=== PATIENT | female | born 1985 | race Caucasian/White ===

== ENCOUNTER 2018-04-03 04:49 | Inpatient (IN) | payer BC, OTHER ==
[2018-04-03 05:11] VITALS: BMI 39.1
--- NOTE | 2018-04-03 05:16 | PDOC ---
Attending Attestation - HPI HPI: 04/03/18 05:22 The patient is a 32 year old female, with a significant PMH of endometriosis, lupus and migraines who presents to the emergency department sent in for admission by neurologist Dr. Rich for 1 week of migraines. The patient states her headache is worse on the right side with associated nausea and photophobia. The patient denies chest pain, shortness of breath, and dizziness. Denies fever, chills, vomit, diarrhea and constipation. Denies dysuria, frequency, urgency and hematuria. Allergies: azithromycin, naproxen, [alieve] - Physicial Exam PE: 04/03/18 05:23 GENERAL: +Mild distress. Well-appearing, well-nourished. HEENT: Normocephalic, atraumatic. PERRL, EOM intact. CARDIOVASCULAR: Normal S1, S2. Regular rate and rhythm. PULMONARY: Clear to auscultation bilaterally. ABDOMEN: Soft, non-distended, non-tender. EXTREMITIES: Normal ROM in all four extremities. No gross deformities. SKIN: Warm, dry. No rash NEUROLOGICAL: No focal neurological deficits. <Fidencio Diallo - Last Filed: 04/03/18 06:01> - Resident Resident Name: Walker Spence - ED Attending Attestation I have performed the following: I have examined & evaluated the patient, The case was reviewed & discussed with the resident, I agree w/resident's findings & plan, Exceptions are as noted - Medical Decision Making 04/06/18 19:33 pt was admitted for further evaluation and care <Johan Colon - Last Filed: 04/06/18 19:33> Attestations - Attestations 04/03/18 05:23 Documentation prepared by Fidencio Diallo, acting as medical technologist blood bank for Johan Colon DO. <Fidencio Diallo - Last Filed: 04/03/18 06:01>
[2018-04-03] MEDS ORDERED: METOCLOPRAMIDE HCL INJECTION 10 MG/2 ML VIAL IVPUSH ONE (05:18)
--- NOTE | 2018-04-03 05:39 | PDOC ---
History of Present Illness - General Chief Complaint: Migraine Headache Stated Complaint: MIGRAINE Time Seen by Provider: 04/03/18 05:10 History Source: Patient Exam Limitations: No Limitations - History of Present Illness Initial Comments: 04/03/18 05:34 Patient is a 32F with history of SLE, endometriosis and migraines here today complaining of a migraine headache for the past 7 days. Patient was sent in by Dr Rich for admission for dihydroergotamine treatment for three days for status migrainosis. Patient describes a headache that insidiously onset, currently worse on the right side, with associated nausea and light sensitivity. Denies fevers, chills, vomiting, and neck pain. Denies chest pain and shortness of breath. Past History - Past Medical History Allergies/Adverse Reactions: Allergies Allergy/AdvReac Type Severity Reaction Status Date / Time azithromycin [From Zithromax] Allergy Verified 04/03/18 05:09 naproxen [From Naprosyn] Allergy Verified 04/03/18 05:09 alieve Allergy Uncoded 04/03/18 05:10 - Suicide/Smoking/Psychosocial Hx Smoking History: Never smoked Have you smoked in the past 12 months: No Information on smoking cessation initiated: No Hx Alcohol Use: No Drug/Substance Use Hx: No Review of Systems - Review of Systems Comments:: 04/03/18 05:37 GENERAL/CONSTITUTIONAL: No fever or chills. No weakness. HEAD, EYES, EARS, NOSE AND THROAT: No change in vision. No sore throat. CARDIOVASCULAR: No chest pain or shortness of breath RESPIRATORY: No cough, wheezing, or hemoptysis. GASTROINTESTINAL: No nausea, vomiting, diarrhea or constipation. GENITOURINARY: No dysuria, frequency, or change in urination. MUSCULOSKELETAL: No joint or muscle swelling or pain. No neck or back pain. SKIN: No rash NEUROLOGIC: +headache. No vertigo, loss of consciousness, or change in strength/ sensation. ENDOCRINE: No increased thirst. No abnormal weight change HEMATOLOGIC/LYMPHATIC: No anemia, easy bleeding, or history of blood clots. ALLERGIC/IMMUNOLOGIC: No hives or skin allergy. *Physical Exam - Vital Signs Last Vital Signs Temp Pulse Resp BP Pulse Ox 97.6 F 82 20 136/90 100 04/03/18 05:10 04/03/18 05:10 04/03/18 05:10 04/03/18 05:10 04/03/18 05:10 - Physical Exam Comments: 04/03/18 05:37 GENERAL: Awake, alert, and fully oriented, in no acute distress, covering eyes HEAD: No signs of trauma, normocephalic, atraumatic EYES: PERRLA, EOMI, sclera anicteric, conjunctiva clear ENT: Auricles normal inspection, hearing grossly normal, nares patent, oropharynx clear without exudates. Moist mucosa NECK: Normal ROM, supple, no lymphadenopathy, JVD, or masses LUNGS: No distress, speaks full sentences, clear to auscultation bilaterally HEART: Regular rate and rhythm, normal S1 and S2, no murmurs, rubs or gallops, peripheral pulses normal and equal bilaterally. ABDOMEN: Soft, nontender, normoactive bowel sounds. No guarding, no rebound. No masses EXTREMITIES: Normal inspection, Normal range of motion, no edema. No clubbing or cyanosis. NEUROLOGICAL: Cranial nerves II through XII grossly intact. Normal speech, normal gait, no focal sensorimotor deficits SKIN: Warm, Dry, normal turgor, no rashes or lesions noted. ED Treatment Course - LABORATORY CBC & Chemistry Diagram: 04/03/18 05:45 04/03/18 05:45 Medical Decision Making - Medical Decision Making 04/03/18 05:37 Patient is 32F with history of migraines, SLE, and endometriosis here today complaining of a migraine. Vital signs stable and normal. Will evaluate with cbc , cmp, ekg to clear for DHE treatment. Will give reglan now. Will contact Dr Rich at 6am. 04/03/18 06:30 EKG shows normal sinus rhythm with rate of 69. No st elevations/depressions. No significant t-wave inversions. Normal axis. Normal intervals. Laboratory Tests 04/03/18 05:45 WBC 8.8 Hgb 13.4 Hct 39.9 RDW 14.7 CBC normal. Lab called to cancel result. Second CBC ordered. 04/03/18 07:[address] Ricketts *DC/Admit/Observation/Transfer Diagnosis at time of Disposition: Migraine - Discharge Dispostion Condition at time of disposition: Stable - Referrals Referrals: Arabella He MD [Primary Care Provider] - - Patient Instructions - Post Discharge Activity
[2018-04-03] MEDS ORDERED: HYDROXYCHLOROQUINE SO4 200 MG TABLET (FP) PO SCH (06:00)
[2018-04-03 06:34] LABS: ALBUMIN 3.7 g/dl (3.4-5.0); ANION GAP 10 (8-16); BILIRUBIN,TOTAL 0.2 mg/dL (0.2-1.0); BLOOD UREA NITROGEN 12 mg/dL (7-18); CHLORIDE 104 mmol/L (98-107); CO2 25 mmol/L (21-32); CREATININE 0.7 mg/dL (0.55-1.02); GLUCOSE,RANDOM 93 mg/dL (74-106); SGPT/ALT 28 U/L (12-78); SODIUM 139 mmol/L (136-145); TOT PROT 7.3 g/dl (6.4-8.2)
[2018-04-03 06:35] LABS: ALK PHOS 53 U/L (45-117)
[2018-04-03 06:58] LABS: POTASSIUM 4.3 mmol/L (3.5-5.1); SGOT/AST 22 U/L (15-37)
[2018-04-03 07:59] LABS: BASO % 0.3 % (0-2.0); EOS % 1.7 % (0-4.5); HEMATOCRIT 37.5 % (32.4-45.2); HEMOGLOBIN 12.8 GM/dL (10.7-15.3); LYMPH % 32.6 % (8-40); MCH 30.3 pg (25.7-33.7); MCHC 34.1 g/dl (32.0-36.0); MEAN CELL VOLUME 88.8 fl (80-96); MONO % 6.2 % (3.8-10.2); NEUT % 59.2 % (42.8-82.8); PLATELET COUNT 302 K/MM3 (134-434); RBC 4.22 M/mm3 (3.60-5.2); RDW 14.4 % (11.6-15.6); WHITE BLOOD COUNT 7.2 K/mm3 (4.0-10.0)
[2018-04-03 08:25] LABS: INR 1.11 (0.82-1.09); PROTHROMBIN TIME (PATIENT) 12.5 SEC (9.7-13.0)
--- NOTE | 2018-04-03 08:53 | PDOC ---
*Physical Exam - Vital Signs Last Vital Signs Temp Pulse Resp BP Pulse Ox 97.6 F 82 20 136/90 100 04/03/18 05:10 04/03/18 05:10 04/03/18 05:10 04/03/18 05:10 04/03/18 05:10 ED Treatment Course - LABORATORY CBC & Chemistry Diagram: 04/03/18 07:25 04/03/18 05:45 - ADDITIONAL ORDERS Additional order review: Laboratory Results 04/03/18 04/03/18 05:45 05:45 Sodium 139 Potassium 4.3 Chloride 104 Carbon Dioxide 25 Anion Gap 10 BUN 12 Creatinine 0.7 Creat Clearance w eGFR > 60 Random Glucose 93 Calcium 9.0 Total Bilirubin 0.2 AST 22 ALT 28 Alkaline Phosphatase 53 Total Protein 7.3 Albumin 3.7 Serum , Qual Negative 04/03/18 05:45 RBC Cancelled MCV Cancelled MCHC Cancelled RDW Cancelled MPV Cancelled Neutrophils % Cancelled Lymphocytes % Cancelled Monocytes % Cancelled Eosinophils % Cancelled Basophils % Cancelled - Medications Given in the ED: ED Medications Discontinued Medications Generic Name Dose Route Start Last Admin Trade Name Rai PRN Reason Stop Dose Admin Metoclopramide HCl 10 mg 04/03/18 05:18 04/03/18 05:54 Reglan Injection - IVPUSH 04/03/18 05:19 10 mg ONCE ONE Administration Medical Decision Making - Medical Decision Making 04/03/18 08:06 32 yo female PMH SLE and migraines presents to ED for a 7 day Migraine. Received sign out from Dr. Spence. Patient sent by her Neurologist Dr. Rich for inpatient treatment with dihydroergotamine. Attempting to speak with Dr. Rich for verification and dosage of medication. Vitals stable. Labs normal ED Course: Patient resting comfortably. Will reassess within the next hour and call Dr. Rich (neuro [phone]) for dose of dihydroergotamine. Patient states the headache and nausea persist with no improvement with hydroxychloroquine or reglan. According to Dr. Rich, patients migraine regime is: Reglan 10 mg prior to DHE .5 mg q8h. Also, 25 mg benadryl q8h *DC/Admit/Observation/Transfer Diagnosis at time of Disposition: Migraine Qualifiers: Migraine type: unspecified Status migrainosus presence: with status migrainosus Intractability: intractable Qualified Code(s): G43.911 - Migraine, unspecified, intractable, with status migrainosus - Discharge Dispostion Condition at time of disposition: Stable Decision to Admit order: Yes - Referrals Referrals: Arabella He MD [Primary Care Provider] - Aj Rich DO [Staff Physician] - - Patient Instructions - Post Discharge Activity
--- NOTE | 2018-04-03 09:59 | PN ---
Teaching Attending Note Name of Resident: Razia Pascual ATTENDING PHYSICIAN STATEMENT I saw and evaluated the patient. I reviewed the resident's note and discussed the case with the resident. I agree with the resident's findings and plan as documented. SUBJECTIVE: Patient is a 32F w/ pmhx migraines, SLE, endometriosis admitted for persistent migraine headache for the past 7 days.She follows up with . OBJECTIVE: Vital Signs Temperature 97.6 F 04/03/18 05:10 Pulse Rate 82 04/03/18 05:10 Respiratory Rate 20 04/03/18 05:10 Blood Pressure 136/90 04/03/18 05:10 O2 Sat by Pulse Oximetry (%) 100 04/03/18 05:10 CBCD WBC 7.2 K/mm3 (4.0-10.0) 04/03/18 07:25 RBC 4.22 M/mm3 (3.60-5.2) 04/03/18 07:25 Hgb 12.8 GM/dL (10.7-15.3) 04/03/18 07:25 Hct 37.5 % (32.4-45.2) 04/03/18 07:25 MCV 88.8 fl (80-96) 04/03/18 07:25 MCHC 34.1 g/dl (32.0-36.0) 04/03/18 07:25 RDW 14.4 % (11.6-15.6) 04/03/18 07:25 Plt Count 302 K/MM3 (134-434) 04/03/18 07:25 MPV 8.0 fl (7.5-11.1) 04/03/18 07:25 CMP Sodium 139 mmol/L (136-145) 04/03/18 05:45 Potassium 4.3 mmol/L (3.5-5.1) 04/03/18 05:45 Chloride 104 mmol/L (98-107) 04/03/18 05:45 Carbon Dioxide 25 mmol/L (21-32) 04/03/18 05:45 Anion Gap 10 (8-16) 04/03/18 05:45 BUN 12 mg/dL (7-18) 04/03/18 05:45 Creatinine 0.7 mg/dL (0.55-1.02) 04/03/18 05:45 Creat Clearance w eGFR > 60 (>60) 04/03/18 05:45 Random Glucose 93 mg/dL (74-106) 04/03/18 05:45 Calcium 9.0 mg/dL (8.5-10.1) 04/03/18 05:45 Total Bilirubin 0.2 mg/dL (0.2-1.0) 04/03/18 05:45 AST 22 U/L (15-37) 04/03/18 05:45 ALT 28 U/L (12-78) 04/03/18 05:45 Alkaline Phosphatase 53 U/L (45-117) 04/03/18 05:45 Total Protein 7.3 g/dl (6.4-8.2) 04/03/18 05:45 Albumin 3.7 g/dl (3.4-5.0) 04/03/18 05:45 Current Medications Generic Name Dose Route Start Last Admin Trade Name Freq PRN Reason Stop Dose Admin Hydroxychloroquine Sulfate 400 mg 04/03/18 06:00 04/03/18 09:00 Plaquenil - PO 400 mg ONCE MICHEL Administration Current Medications Generic Name Dose Route Start Last Admin Trade Name Freq PRN Reason Stop Dose Admin Bupropion HCl 150 mg 04/04/18 10:00 Wellbutrin - PO DAILY MICHEL Dihydroergotamine Mesylate 0.5 mg 04/03/18 11:00 04/03/18 12:15 D.H.E. - IVPB 0.5 mg Q8H MICHEL Administration Diphenhydramine HCl 25 mg 04/03/18 10:30 04/03/18 18:25 Benadryl Injection - IVPB 25 mg Q8H MICHEL Administration Folic Acid 1 mg 04/04/18 10:00 Folic Acid - PO DAILY MICHEL Methotrexate 15 mg 04/04/18 10:00 Mexate - PO Sa@1000 MICHEL Methylprednisolone 4 mg 04/04/18 10:00 Medrol - PO DAILY MICHEL Metoclopramide HCl 10 mg 04/03/18 11:29 04/03/18 14:31 Reglan Injection - IVPUSH 10 mg Q6H PRN Administration NAUSEA AND/OR VOMITING Non-Formulary Medication 0.7 mg 04/04/18 10:00 Norethindrone [Norethindrone] PO DAILY MICHEL PE: per resident's note EKG: QTc 441 ASSESSMENT AND PLAN: Patient is a 32F w/ pmhx migraines, SLE, endometriosis who presents in the ED with 7 day hx of migraines admitted for uncontrolled migraine exacerbation. #Acute exacerbation of migraine headache for 7 days , patient follows with as an outpatient.will consult dr. Mayfield treatment protocol as per #SLE; cont home meds #Morbid obesity :diet consult for weight loss and recommendations DVT px: SCDS
[2018-04-03] MEDS ORDERED: METOCLOPRAMIDE HCL INJECTION 10 MG/2 ML VIAL IM ONE (10:20)
--- NOTE | 2018-04-03 11:53 | HP ---
CHIEF COMPLAINT: migraine for past 7 days PCP: HISTORY OF PRESENT ILLNESS: 32F w/ pmhx migraines, SLE, endometriosis admitted for persistent migraine headache for the past 7 days. She is currently being seen by Dr. Rich for the migraines and receives botox injections and steroid as treatment. She admits to the headache first starting on the L side but is now mainly on the R side and radiates from the R frontal region throughout the R side of the head down the back of neck. She associates the migraines with photophobia, and pain behind the R eye. She said she recently saw Dr. Rich this past Friday for treatment of her migraine in which she was given steroid and occipital nerve block. Pain behind her eye temporarily improved, but she admits to persistent R eye pain today. She denies fever/chills, vomiting, chest pain, sob, urinary/bowel symptoms. ER course was notable for: (1) Reglan injection given. (2) ECG: NSR, No ST elevation/depression, Normal axis. (3) PAST MEDICAL HISTORY: migraines since childhood SLE, currently being treated endometriosis PAST SURGICAL HISTORY: breast reduction sx 5 years ago laparoscopic removal of endometrial tissue x2 (1st time: years ago, 2nd time: January 2018) Social History: Smoking: Denies smoking use Alcohol: Denies alcohol use Drugs: Denies rec drug use Family History: Father- HTN, possible hx of seizure d/o (?) Allergies azithromycin [From Zithromax] Allergy (Verified 04/03/18 05:09)- hives naproxen [From Naprosyn] Allergy (Verified 04/03/18 05:09)- itchy throat aleve Allergy (Uncoded 04/03/18 05:10)- itchy throat HOME MEDICATIONS: REVIEW OF SYSTEMS CONSTITUTIONAL: Absent: fever, chills, diaphoresis, generalized weakness, malaise, loss of appetite, weight change, HEENT: +R sided eye pain, +photophobia Absent: rhinorrhea, nasal congestion, throat pain, throat swelling, difficulty swallowing, mouth swelling, ear pain, visual changes CARDIOVASCULAR: Absent: chest pain, syncope, palpitations, irregular heart rate, lightheadedness , peripheral edema RESPIRATORY: Absent: cough, shortness of breath, dyspnea with exertion, orthopnea, wheezing, stridor, hemoptysis GASTROINTESTINAL: +nausea Absent: abdominal pain, abdominal distension, vomiting, diarrhea, constipation, melena, hematochezia GENITOURINARY: Absent: dysuria, frequency, urgency, hesitancy, hematuria, flank pain, genital pain MUSCULOSKELETAL: Absent: myalgia, arthralgia, joint swelling, back pain, neck pain SKIN: Absent: rash, itching, pallor HEMATOLOGIC/IMMUNOLOGIC: Absent: easy bleeding, easy bruising, lymphadenopathy, frequent infections ENDOCRINE: Absent: unexplained weight gain, unexplained weight loss, heat intolerance, cold intolerance NEUROLOGIC: +R sided headache, radiating from front of head to back of neck Absent: focal weakness or paresthesias, dizziness, unsteady gait, seizure, mental status changes, bladder or bowel incontinence PSYCHIATRIC: Absent: anxiety, depression, suicidal or homicidal ideation, hallucinations. PHYSICAL EXAMINATION Vital Signs - 24 hr 04/03/18 04/03/18 05:10 10:15 Temperature 97.6 F 98.0 F Pulse Rate 82 Pulse Rate [ 73 Right Radial] Respiratory 20 18 Rate Blood Pressure 136/90 Blood Pressure 108/69 [Left Arm] O2 Sat by Pulse 100 97 Oximetry (%) GENERAL: AAOx3. NAD. Resting comfortably in dark. HEENT: AT/NC. EOMI. +photophobia. NECK: Normal range of motion, supple without lymphadenopathy, JVD, or masses. LUNGS: CTA B/L. -w/r/r/ noted. HEART: RRR. -m/r/g noted. Normal S1, S2. ABDOMEN: Soft, NT/ND. normoactive BS in all 4 Q's. No abdominal masses, or bruits noted. MUSCULOSKELETAL: Normal range of motion at all joints. No bony deformities or tenderness. 5/5 muscle strength in U/L B/L extremities. UPPER EXTREMITIES: 2+ pulses, warm, well-perfused. No cyanosis. No clubbing. No peripheral edema. LOWER EXTREMITIES: 2+ pulses, warm, well-perfused. No calf tenderness. No peripheral edema. NEUROLOGICAL: Cranial nerves II-XII intact. Normal speech. PSYCHIATRIC: Cooperative. Good eye contact. Appropriate mood and affect. SKIN: Warm, dry, normal turgor, no rashes or lesions noted, normal capillary refill. Laboratory Results - last 24 hr 04/03/18 04/03/18 04/03/18 05:45 05:45 05:45 WBC Cancelled Corrected WBC (auto) Cancelled RBC Cancelled Hgb Cancelled Hct Cancelled MCV Cancelled MCH Cancelled MCHC Cancelled RDW Cancelled Plt Count Cancelled MPV Cancelled Absolute Neuts (auto) Cancelled Absolute Lymphs (auto) Cancelled Absolute Monos (auto) Cancelled Absolute Eos (auto) Cancelled Absolute Basos (auto) Cancelled Add Manual Diff Cancelled Neutrophils % Cancelled Lymphocytes % Cancelled Monocytes % Cancelled Eosinophils % Cancelled Basophils % Cancelled Nucleated RBC % Cancelled Platelet Estimate Cancelled Platelet Comment Cancelled Normal RBC Morphology Cancelled PT with INR INR Sodium 139 Potassium 4.3 Chloride 104 Carbon Dioxide 25 Anion Gap 10 BUN 12 Creatinine 0.7 Creat Clearance w eGFR > 60 Random Glucose 93 Calcium 9.0 Total Bilirubin 0.2 AST 22 ALT 28 Alkaline Phosphatase 53 Total Protein 7.3 Albumin 3.7 Serum , Qual Negative 04/03/18 04/03/18 07:25 07:25 WBC 7.2 Corrected WBC (auto) RBC 4.22 Hgb 12.8 Hct 37.5 MCV 88.8 MCH 30.3 MCHC 34.1 RDW 14.4 Plt Count 302 MPV 8.0 Absolute Neuts (auto) 4.3 Absolute Lymphs (auto) Absolute Monos (auto) Absolute Eos (auto) Absolute Basos (auto) Add Manual Diff Neutrophils % 59.2 Lymphocytes % 32.6 Monocytes % 6.2 Eosinophils % 1.7 Basophils % 0.3 Nucleated RBC % 0 Platelet Estimate Platelet Comment Normal RBC Morphology PT with INR 12.50 INR 1.11 Sodium Potassium Chloride Carbon Dioxide Anion Gap BUN Creatinine Creat Clearance w eGFR Random Glucose Calcium Total Bilirubin AST ALT Alkaline Phosphatase Total Protein Albumin Serum , Qual Consults: Neuro - Dr. Rich ASSESSMENT/PLAN: 32F w/ pmhx migraines, SLE, endometriosis who presents in the ED with 7 day hx of migraines admitted for DHE treatment. #status migrainosis -f/u Dr. Rich consult -start migraine tx: Reglan 10 mg 10 min prior to first DHE treatment, then Benadryl 25 mg q8h + DHE .5 mg q8h together -monitor pt for worsening symptoms #SLE; stable. -needs med rec -cont home meds #high BMI -f/u dietitian consult FEN no IVf needed lytes wnl, recheck BMP in AM regular diet dispo full code d/c to home after DHE tx Visit type - Emergency Visit Emergency Visit: Yes ED Registration Date: 04/03/18 Care time: The patient presented to the Emergency Department on the above date and was hospitalized for further evaluation of their emergent condition. - New Patient This patient is new to me today: Yes Date on this admission: 04/03/18 - Critical Care Critical Care patient: No Hospitalist Screening - Colonoscopy Questionnaire Colonoscopy Questionnaire: Colonoscopy Questionnaire - Patient: 50 - 75 years old and never had a screening colonoscopy: Unknown History of colon or rectal polyps, or CA: Unknown History of IBD, Crohn's disease or UC: Unknown History of abdominal radiation therapy as a child: Unknown - Relative: 1 with colon or rectal CA, or polyps at age 60 or younger: Unknown Colon or rectal CA diagnosed at age 45 or younger: Unknown Multiple relatives with colon or rectal CA: Unknown - Outcome: Screening Result: Negative Screen
--- NOTE | 2018-04-03 12:10 | EKG ---
Test Reason : Blood Pressure : / mmHG Vent. Rate : 069 BPM Atrial Rate : 069 BPM P-R Int : 140 ms QRS Dur : 078 ms QT Int : 412 ms P-R-T Axes : 048 045 046 degrees QTc Int : 441 ms POOR DATA QUALITY, INTERPRETATION MAY BE ADVERSELY AFFECTED NORMAL SINUS RHYTHM WITH SINUS ARRHYTHMIA POSSIBLE LEFT ATRIAL ENLARGEMENT BORDERLINE ECG NO PREVIOUS ECGS AVAILABLE Confirmed by SILVA HUGHES, SIDNEY ([id number]) on 04/03/2018 12:10:36 PM Referred By: Confirmed By:SIDNEY ASCENCIO MD
[2018-04-03] MEDS: DIHYDROERGOTAMINE MESYLATE 1 MG/1 ML AMPULE IVPB SCH ×2 (12:15→20:13)
[2018-04-03] MEDS ORDERED: PT OWN MED DRAWER 7, Y5N ONE (13:59)
[2018-04-03] MEDS: METOCLOPRAMIDE HCL INJECTION 10 MG/2 ML VIAL IVPUSH PRN (14:31)
[2018-04-04] MEDS: DIHYDROERGOTAMINE MESYLATE 1 MG/1 ML AMPULE IVPB SCH ×3 (03:25→18:15)
[2018-04-04 09:21] LABS: HEMATOCRIT 40.2 % (32.4-45.2); MCH 30.9 pg (25.7-33.7); MCHC 34.8 g/dl (32.0-36.0); MEAN CELL VOLUME 88.8 fl (80-96); MEAN PLT VOLUME 8.1 fl (7.5-11.1); PLATELET COUNT 289 K/MM3 (134-434); RBC 4.53 M/mm3 (3.60-5.2); RDW 14.5 % (11.6-15.6); WHITE BLOOD COUNT 9.2 K/mm3 (4.0-10.0)
[2018-04-04 09:23] LABS: INR 1.16 (0.82-1.09); PROTHROMBIN TIME (PATIENT) 13.1 SEC (9.7-13.0)
[2018-04-04 09:26] LABS: ACTIVATED PTT 30.1 SECONDS (25.2-36.5)
[2018-04-04] MEDS: FOLIC ACID 1 MG TABLET (FP) PO SCH (09:46)
[2018-04-04] MEDS: buPROPion HCL 75 MG TABLET PO SCH (09:47)
[2018-04-04] MEDS: methylPREDNISolone 4 MG TABLET PO SCH (09:48)
[2018-04-04 09:51] LABS: ANION GAP 8 (8-16); BLOOD UREA NITROGEN 10 mg/dL (7-18); CHLORIDE 105 mmol/L (98-107); CO2 27 mmol/L (21-32); CREATININE 0.7 mg/dL (0.55-1.02); GLUCOSE,RANDOM 83 mg/dL (74-106); MAGNESIUM 2.2 mg/dL (1.8-2.4); PHOSPHOROUS 4.1 mg/dL (2.5-4.9); POTASSIUM 4.7 mmol/L (3.5-5.1); SODIUM 140 mmol/L (136-145)
--- NOTE | 2018-04-04 09:52 | PN ---
Progress Note (short form) - Note Progress Note: Patient continues to have headache but mild headache. Vital Signs Temperature 98.5 F 04/04/18 06:00 Pulse Rate 76 04/04/18 06:00 Respiratory Rate 18 04/04/18 06:00 Blood Pressure 122/87 04/04/18 06:00 O2 Sat by Pulse Oximetry (%) 98 04/04/18 03:00 GENERAL: AAOx3. NAD. HEENT: AT/NC. EOMI. no photophobia NECK: suppe, no JVD or masses appreciated . LUNGS: CTA B/L. No RRW HEART: RRR. Normal S1, S2. ABDOMEN: Soft, NT/ND. large abdomen EXTREMITIES: 2+ pulses, warm, well-perfused. No peripheral edema. NEUROLOGICAL: Cranial nerves II-XII intact. Normal speech. PSYCHIATRIC: Cooperative. Good eye contact. SKIN: Warm, dry, normal turgor, no rashes or lesions noted. CBCD WBC 9.2 K/mm3 (4.0-10.0) 04/04/18 08:00 RBC 4.53 M/mm3 (3.60-5.2) 04/04/18 08:00 Hgb 14.0 GM/dL (10.7-15.3) 04/04/18 08:00 Hct 40.2 % (32.4-45.2) 04/04/18 08:00 MCV 88.8 fl (80-96) 04/04/18 08:00 MCHC 34.8 g/dl (32.0-36.0) 04/04/18 08:00 RDW 14.5 % (11.6-15.6) 04/04/18 08:00 Plt Count 289 K/MM3 (134-434) 04/04/18 08:00 MPV 8.1 fl (7.5-11.1) 04/04/18 08:00 CMP Sodium 139 mmol/L (136-145) 04/03/18 05:45 Potassium 4.3 mmol/L (3.5-5.1) 04/03/18 05:45 Chloride 104 mmol/L (98-107) 04/03/18 05:45 Carbon Dioxide 25 mmol/L (21-32) 04/03/18 05:45 Anion Gap 10 (8-16) 04/03/18 05:45 BUN 12 mg/dL (7-18) 04/03/18 05:45 Creatinine 0.7 mg/dL (0.55-1.02) 04/03/18 05:45 Creat Clearance w eGFR > 60 (>60) 04/03/18 05:45 Random Glucose 93 mg/dL (74-106) 04/03/18 05:45 Calcium 9.0 mg/dL (8.5-10.1) 04/03/18 05:45 Total Bilirubin 0.2 mg/dL (0.2-1.0) 04/03/18 05:45 AST 22 U/L (15-37) 04/03/18 05:45 ALT 28 U/L (12-78) 04/03/18 05:45 Alkaline Phosphatase 53 U/L (45-117) 04/03/18 05:45 Total Protein 7.3 g/dl (6.4-8.2) 04/03/18 05:45 Albumin 3.7 g/dl (3.4-5.0) 04/03/18 05:45 Current Medications Generic Name Dose Route Start Last Admin Trade Name Freq PRN Reason Stop Dose Admin Bupropion HCl 150 mg 04/04/18 10:00 04/04/18 09:47 Wellbutrin - PO 150 mg DAILY MICHEL Administration Dihydroergotamine Mesylate 0.5 mg 04/03/18 11:00 04/04/18 03:25 D.H.E. - IVPB 0.5 mg Q8H MICHEL Administration Diphenhydramine HCl 25 mg 04/03/18 10:30 04/04/18 01:50 Benadryl Injection - IVPB 25 mg Q8H MICHEL Administration Folic Acid 1 mg 04/04/18 10:00 04/04/18 09:46 Folic Acid - PO 1 mg DAILY MICHEL Administration Methotrexate 15 mg 04/04/18 10:00 Mexate - PO Sa@1000 MICHEL Methylprednisolone 4 mg 04/04/18 10:00 04/04/18 09:48 Medrol - PO 4 mg DAILY MICHEL Administration Metoclopramide HCl 10 mg 04/03/18 11:29 04/03/18 14:31 Reglan Injection - IVPUSH 10 mg Q6H PRN Administration NAUSEA AND/OR VOMITING Home Medications Medication Instructions Recorded Bupropion HCl [Wellbutrin -] 150 mg PO DAILY 04/03/18 Folic Acid 1 mg PO DAILY 04/03/18 Methotrexate Sodium [Methotrexate] 2.5 mg PO WEEKLY 04/03/18 Methylprednisolone [Medrol -] 4 mg PO DAILY 04/03/18 Norethindrone 0.7 mg PO DAILY 04/03/18 EKG: QTc 441 ASSESSMENT AND PLAN: Patient is a 32F w/ pmhx migraines, SLE, endometriosis who presents in the ED with 7 day hx of migraines admitted for uncontrolled migraine exacerbation #Acute exacerbation of migraine headache for 7 days. On DHE protocol as per dr. Mayfield. further treatment as per #SLE; cont home meds #Morbid obesity : diet consult for weight loss and recommendations DVT px: SCDS Visit type - Emergency Visit Emergency Visit: Yes ED Registration Date: 04/03/18 Care time: The patient presented to the Emergency Department on the above date and was hospitalized for further evaluation of their emergent condition. - New Patient This patient is new to me today: No - Critical Care Critical Care patient: No - Discharge Referral Referred to [facility] No
[2018-04-04] MEDS: METOCLOPRAMIDE HCL INJECTION 10 MG/2 ML VIAL IVPUSH PRN (09:57)
[2018-04-04] MEDS ORDERED: METHOTREXATE 2.5 MG TABLET PO SCH (10:00)
[2018-04-04] MEDS ORDERED: NORETHINDRONE PO SCH (10:00)
--- NOTE | 2018-04-04 10:44 | CON.NEURO ---
Consult - History of Present Illness History of Present Illness: 32F w/ pmhx migraines, SLE, endometriosis admitted for persistent migraine headache for the past 7 days.I see her as an outpt for intractable migraines and she receives botox injections and po steroid as treatment. She admits to the headache first starting on the L side but is now mainly on the R side and radiates from the R frontal region throughout the R side of the head down the back of neck. She associates the migraines with photophobia, and pain behind the R eye. no help with medrol, nerve blocks-admitted for DHE protocol . She denies fever/chills, vomiting, chest pain, sob, urinary/bowel symptoms. started DHE yesterday--AH better today though still linger ; minimal chest pressure witH DHE. - History Source History Provided By: Patient, Medical Record - Past Medical History ...LMP: 03/10/18 ...: No - Alcohol/Substance Use Hx Alcohol Use: No - Smoking History Smoking history: Never smoked Have you smoked in the past 12 months: No Home Medications - Allergies Allergies/Adverse Reactions: Allergies Allergy/AdvReac Type Severity Reaction Status Date / Time azithromycin [From Zithromax] Allergy Verified 04/03/18 05:09 naproxen [From Naprosyn] Allergy Verified 04/03/18 05:09 alieve Allergy Uncoded 04/03/18 05:10 - Home Medications Home Medications: Ambulatory Orders Bupropion HCl [Wellbutrin -] 150 mg PO DAILY 04/03/18 Folic Acid 1 mg PO DAILY 04/03/18 Methotrexate Sodium [Methotrexate] 2.5 mg PO WEEKLY 04/03/18 Methylprednisolone [Medrol -] 4 mg PO DAILY 04/03/18 Norethindrone 0.7 mg PO DAILY 04/03/18 Physical Exam-Neuro Vital Signs: Vital Signs Temperature 98.5 F 04/04/18 06:00 Pulse Rate 76 04/04/18 06:00 Respiratory Rate 18 04/04/18 06:00 Blood Pressure 122/87 04/04/18 06:00 O2 Sat by Pulse Oximetry (%) 98 04/04/18 03:00 Constitutional: Yes: Well Nourished Labs: CBC, BMP 04/04/18 08:00 04/04/18 08:00 INR, PTT INR 1.16 (0.82-1.09) H 04/04/18 08:00 - Neuro Exam Level Of Consciousness: Yes: Alert, Oriented to Person Eyes: Yes: PERRLA Speech: WNL Cranial Nerves II-XII Intact: Yes Coordination: Normal: Finger to Nose Motor Strength: 5/5: Right Leg, Left Leg, Right Arm, Left Arm Gait: Normal Problem List - Problems (1) Migraine with status migrainosus Code(s): G43.901 - MIGRAINE, UNSP, NOT INTRACTABLE, WITH STATUS MIGRAINOSUS Assessment/Plan MIigraine with status migrainosus CONT DHE 0.5 TID , premedicate with REGLAN 30min prior will get EKG now , if any changes --may have to hold DHE ( though this not uncommon) doing better plan to continue till tomorrow evening and if Ok then DC tomorrow night. please call any questions DR LIRA
--- NOTE | 2018-04-04 11:24 | EKG ---
Test Reason : Blood Pressure : / mmHG Vent. Rate : 078 BPM Atrial Rate : 078 BPM P-R Int : 138 ms QRS Dur : 084 ms QT Int : 398 ms P-R-T Axes : 047 059 036 degrees QTc Int : 453 ms NORMAL SINUS RHYTHM NORMAL ECG WHEN COMPARED WITH ECG OF 03-APR-2018 06:23, NO SIGNIFICANT CHANGE WAS FOUND Confirmed by SIDNEY ASCENCIO MD ([id number]) on 04/04/2018 11:24:19 AM Referred By: Thad RAMOS Confirmed By:SIDNEY ASCENCIO MD
[2018-04-04] MEDS: METOCLOPRAMIDE HCL INJECTION 10 MG/2 ML VIAL IVPUSH SCH (17:40)
[2018-04-04] MEDS ORDERED: METOCLOPRAMIDE HCL INJECTION 10 MG/2 ML VIAL IVPUSH SCH (18:00)
[2018-04-04] MEDS ORDERED: ACETAMINOPHEN 325 MG TABLET (FP) PO ONE (22:38)
[2018-04-05] MEDS: METOCLOPRAMIDE HCL INJECTION 10 MG/2 ML VIAL IVPUSH SCH ×3 (01:35→18:16)
[2018-04-05] MEDS: DIHYDROERGOTAMINE MESYLATE 1 MG/1 ML AMPULE IVPB SCH ×3 (02:20→18:49)
--- NOTE | 2018-04-05 07:59 | PN ---
Physical Exam: SUBJECTIVE: Patient seen and examined. Pt admits to persistent R sided headache , but improved since yesterday. Denies fever/chills, n/v. Tolerating PO intake. OBJECTIVE: Vital Signs Period Temp Pulse Resp BP Sys/Elena Pulse Ox Last 24 Hr 98.1 F-98.5 F 67-82 18-20 118-126/75-92 100-100 GENERAL: AAOx3. NAD. Resting comfortably in dark. HEENT: AT/NC. EOMI. +photophobia. NECK: Normal range of motion, supple without lymphadenopathy, JVD, or masses. LUNGS: CTA B/L. -w/r/r/ noted. HEART: RRR. -m/r/g noted. Normal S1, S2. ABDOMEN: Soft, NT/ND. normoactive BS in all 4 Q's. No abdominal masses, or bruits noted. MUSCULOSKELETAL: Normal range of motion at all joints. No bony deformities or tenderness. 5/5 muscle strength in U/L B/L extremities. UPPER EXTREMITIES: 2+ pulses, warm, well-perfused. No cyanosis. No clubbing. No peripheral edema. LOWER EXTREMITIES: 2+ pulses, warm, well-perfused. No calf tenderness. No peripheral edema. NEUROLOGICAL: Cranial nerves II-XII intact. Normal speech. PSYCHIATRIC: Cooperative. Good eye contact. Appropriate mood and affect. SKIN: Warm, dry, normal turgor, no rashes or lesions noted, normal capillary refill. Laboratory Results - last 24 hr 04/04/18 04/04/18 04/04/18 08:00 08:00 08:00 WBC 9.2 RBC 4.53 Hgb 14.0 Hct 40.2 MCV 88.8 MCH 30.9 MCHC 34.8 RDW 14.5 Plt Count 289 MPV 8.1 PT with INR 13.10 H INR 1.16 H PTT (Actin FS) 30.1 Sodium 140 Potassium 4.7 Chloride 105 Carbon Dioxide 27 Anion Gap 8 BUN 10 Creatinine 0.7 Creat Clearance w eGFR > 60 Random Glucose 83 Calcium 9.0 Phosphorus 4.1 Magnesium 2.2 Active Medications Generic Name Dose Route Start Last Admin Trade Name Freq PRN Reason Stop Dose Admin Bupropion HCl 150 mg 04/04/18 10:00 04/04/18 09:47 Wellbutrin - PO 150 mg DAILY MICHEL Administration Dihydroergotamine Mesylate 0.5 mg 04/04/18 18:30 04/05/18 02:20 D.H.E. - IVPB 0.5 mg Q8H-IV MICHEL Administration Diphenhydramine HCl 25 mg 04/04/18 18:30 04/05/18 02:22 Benadryl Injection - IVPUSH 25 mg Q8H MICHEL Administration Folic Acid 1 mg 04/04/18 10:00 04/04/18 09:46 Folic Acid - PO 1 mg DAILY MICHEL Administration Methotrexate 15 mg 04/04/18 10:00 04/04/18 10:15 Mexate - PO 15 mg Sa@1000 MICHEL Administration Methylprednisolone 4 mg 04/04/18 10:00 04/04/18 09:48 Medrol - PO 4 mg DAILY MICHEL Administration Metoclopramide HCl 10 mg 04/04/18 18:00 04/05/18 01:35 Reglan Injection - IVPUSH 10 mg Q8H-IV MICHEL Administration Consults: Neuro - Dr. Rich ASSESSMENT/PLAN: 32F w/ pmhx migraines, SLE, endometriosis who presents in the ED with 7 day hx of migraines admitted for DHE treatment. #status migrainosis; improved since admission, but persistent R sided CASTAÑEDA. -cont migraine tx per Dr. Rich: Reglan 10 mg 30 min prior to first DHE treatment, then Benadryl 25 mg q8h + DHE .75 mg q8h together; Add Depakon 500 mg IV q8H -monitor pt for worsening symptoms #SLE; stable. -cont home meds #high BMI -f/u dietitian consult FEN no IVf needed lytes wnl regular diet dispo full code d/c to home after DHE tx Visit type - Emergency Visit Emergency Visit: Yes ED Registration Date: 04/03/18 Care time: The patient presented to the Emergency Department on the above date and was hospitalized for further evaluation of their emergent condition. - New Patient This patient is new to me today: No - Critical Care Critical Care patient: No
[2018-04-05] MEDS: buPROPion HCL 75 MG TABLET PO SCH (09:36)
[2018-04-05] MEDS: FOLIC ACID 1 MG TABLET (FP) PO SCH (09:37)
[2018-04-05] MEDS: methylPREDNISolone 4 MG TABLET PO SCH (09:37)
--- NOTE | 2018-04-05 11:50 | PN ---
Progress Note, Physician History of Present Illness: CASTAEÑDA better but linger no more chest pain , EKG NL - Current Medication List Current Medications: Active Medications Bupropion HCl (Wellbutrin -) 150 mg PO DAILY [facility] Last Admin: 04/05/18 09:36 Dose: 150 mg Dihydroergotamine Mesylate (D.H.E. -) 0.5 mg IVPB Q8H-IV [facility] Last Admin: 04/05/18 10:33 Dose: 0.5 mg Diphenhydramine HCl (Benadryl Injection -) 25 mg IVPUSH Q8H [facility] Last Admin: 04/05/18 10:27 Dose: 25 mg Folic Acid (Folic Acid -) 1 mg PO DAILY [facility] Last Admin: 04/05/18 09:37 Dose: 1 mg Methotrexate (Mexate -) 15 mg PO Sa@1000 [facility] Last Admin: 04/04/18 10:15 Dose: 15 mg Methylprednisolone (Medrol -) 4 mg PO DAILY [facility] Last Admin: 04/05/18 09:37 Dose: 4 mg Metoclopramide HCl (Reglan Injection -) 10 mg IVPUSH Q8H-IV [facility] Last Admin: 04/05/18 09:54 Dose: 10 mg - Objective Vital Signs: Vital Signs Temperature 97.9 F 04/05/18 10:00 Pulse Rate 78 04/05/18 10:00 Respiratory Rate 18 04/05/18 10:00 Blood Pressure 127/89 04/05/18 10:00 O2 Sat by Pulse Oximetry (%) 100 04/04/18 21:00 Labs: CBC, BMP 04/04/18 08:00 04/04/18 08:00 INR, PTT INR 1.16 (0.82-1.09) H 04/04/18 08:00 Problem List - Problems (1) Migraine with status migrainosus Code(s): G43.901 - MIGRAINE, UNSP, NOT INTRACTABLE, WITH STATUS MIGRAINOSUS Assessment/Plan MIigraine with status migrainosus CONT DHE 0.5 TID , premedicate with REGLAN 30min prior will get EKG now , if any changes --may have to hold DHE ( though this not uncommon) doing better plan to continue till tomorrow evening and if Ok then DC tomorrow night. please call any questions DR LIRA
--- NOTE | 2018-04-05 11:51 | PN ---
Progress Note (short form) - Note Progress Note: 32F w/ pmhx migraines, SLE, endometriosis admitted for persistent migraine headache for the past 7 days.I see her as an outpt for intractable migraines and she receives botox injections and po steroid as treatment. She admits to the headache first starting on the L side but is now mainly on the R side and radiates from the R frontal region throughout the R side of the head down the back of neck. She associates the migraines with photophobia, and pain behind the R eye. no help with medrol, nerve blocks-admitted for DHE protocol . She denies fever/chills, vomiting, chest pain, sob, urinary/bowel symptoms. FU : CASTAÑEDA better but linger no more chest pain, EKG NL - History Source History Provided By: Patient, Medical Record - Past Medical History ...LMP: 03/10/18 ...: No - Alcohol/Substance Use Hx Alcohol Use: No - Smoking History Smoking history: Never smoked Have you smoked in the past 12 months: No Home Medications - Allergies Allergies/Adverse Reactions: Allergies Allergy/AdvReac Type Severity Reaction Status Date / Time azithromycin [From Zithromax] Allergy Verified 04/03/18 05:09 naproxen [From Naprosyn] Allergy Verified 04/03/18 05:09 alieve Allergy Uncoded 04/03/18 05:10 - Home Medications Home Medications: Ambulatory Orders Bupropion HCl [Wellbutrin -] 150 mg PO DAILY 04/03/18 Folic Acid 1 mg PO DAILY 04/03/18 Methotrexate Sodium [Methotrexate] 2.5 mg PO WEEKLY 04/03/18 Methylprednisolone [Medrol -] 4 mg PO DAILY 04/03/18 Norethindrone 0.7 mg PO DAILY 04/03/18 Physical Exam-Neuro Vital Signs: Vital Signs Temperature 97.9 F 04/05/18 10:00 Pulse Rate 78 04/05/18 10:00 Respiratory Rate 18 04/05/18 10:00 Blood Pressure 127/89 04/05/18 10:00 O2 Sat by Pulse Oximetry (%) 100 04/04/18 21:00 Constitutional: Yes: Well Nourished Labs: CBC, BMP 04/04/18 08:00 04/04/18 08:00 INR, PTT INR 1.16 (0.82-1.09) H 04/04/18 08:00 - Neuro Exam Level Of Consciousness: Yes: Alert, Oriented to Person Eyes: Yes: PERRLA Speech: WNL Cranial Nerves II-XII Intact: Yes Coordination: Normal: Finger to Nose Motor Strength: 5/5: Right Leg, Left Leg, Right Arm, Left Arm Gait: Normal Problem List - Problems (1) Migraine with status migrainosus Code(s): G43.901 - MIGRAINE, UNSP, NOT INTRACTABLE, WITH STATUS MIGRAINOSUS Assessment/Plan MIigraine with status migrainosus INC DHE 0.75 TID , premedicate with REGLAN 30min prior add on DEPAKON 500IV q8 DR LIRA Problem List - Problems (1) Migraine with status migrainosus Code(s): G43.901 - MIGRAINE, UNSP, NOT INTRACTABLE, WITH STATUS MIGRAINOSUS
[2018-04-05] MEDS ORDERED: DIHYDROERGOTAMINE MESYLATE 1 MG/1 ML AMPULE IVPB SCH (11:52)
[2018-04-05] MEDS: VALPROATE SODIUM 500 MG/5 ML VIAL IVPB SCH (17:04)
--- NOTE | 2018-04-05 18:02 | PN ---
Teaching Attending Note Name of Resident: Razia Pascual ATTENDING PHYSICIAN STATEMENT I saw and evaluated the patient. I reviewed the resident's note and discussed the case with the resident. I agree with the resident's findings and plan as documented. SUBJECTIVE: Patient is feeling better but continues to have headache less than before. OBJECTIVE: Vital Signs Temperature 97.7 F 04/05/18 14:02 Pulse Rate 72 04/05/18 14:02 Respiratory Rate 20 04/05/18 14:02 Blood Pressure 128/83 04/05/18 14:02 O2 Sat by Pulse Oximetry (%) 99 04/05/18 09:00 CBCD WBC 9.2 K/mm3 (4.0-10.0) 04/04/18 08:00 RBC 4.53 M/mm3 (3.60-5.2) 04/04/18 08:00 Hgb 14.0 GM/dL (10.7-15.3) 04/04/18 08:00 Hct 40.2 % (32.4-45.2) 04/04/18 08:00 MCV 88.8 fl (80-96) 04/04/18 08:00 MCHC 34.8 g/dl (32.0-36.0) 04/04/18 08:00 RDW 14.5 % (11.6-15.6) 04/04/18 08:00 Plt Count 289 K/MM3 (134-434) 04/04/18 08:00 MPV 8.1 fl (7.5-11.1) 04/04/18 08:00 CMP Sodium 140 mmol/L (136-145) 04/04/18 08:00 Potassium 4.7 mmol/L (3.5-5.1) 04/04/18 08:00 Chloride 105 mmol/L (98-107) 04/04/18 08:00 Carbon Dioxide 27 mmol/L (21-32) 04/04/18 08:00 Anion Gap 8 (8-16) 04/04/18 08:00 BUN 10 mg/dL (7-18) 04/04/18 08:00 Creatinine 0.7 mg/dL (0.55-1.02) 04/04/18 08:00 Creat Clearance w eGFR > 60 (>60) 04/04/18 08:00 Random Glucose 83 mg/dL (74-106) 04/04/18 08:00 Calcium 9.0 mg/dL (8.5-10.1) 04/04/18 08:00 Total Bilirubin 0.2 mg/dL (0.2-1.0) 04/03/18 05:45 AST 22 U/L (15-37) 04/03/18 05:45 ALT 28 U/L (12-78) 04/03/18 05:45 Alkaline Phosphatase 53 U/L (45-117) 04/03/18 05:45 Total Protein 7.3 g/dl (6.4-8.2) 04/03/18 05:45 Albumin 3.7 g/dl (3.4-5.0) 04/03/18 05:45 Current Medications Generic Name Dose Route Start Last Admin Trade Name Freq PRN Reason Stop Dose Admin Bupropion HCl 150 mg 04/04/18 10:00 04/05/18 09:36 Wellbutrin - PO 150 mg DAILY MICHEL Administration Dihydroergotamine Mesylate 0.75 mg 04/05/18 11:54 D.H.E. - IVPB Q8H-IV MICHEL Diphenhydramine HCl 25 mg 04/04/18 18:30 04/05/18 10:27 Benadryl Injection - IVPUSH 25 mg Q8H MICHEL Administration Folic Acid 1 mg 04/04/18 10:00 04/05/18 09:37 Folic Acid - PO 1 mg DAILY MICHEL Administration Methotrexate 15 mg 04/04/18 10:00 04/04/18 10:15 Mexate - PO 15 mg Sa@1000 MICHEL Administration Methylprednisolone 4 mg 04/04/18 10:00 04/05/18 09:37 Medrol - PO 4 mg DAILY MICHEL Administration Metoclopramide HCl 10 mg 04/04/18 18:00 04/05/18 09:54 Reglan Injection - IVPUSH 10 mg Q8H-IV MICHEL Administration Valproate Sodium 500 mg 04/05/18 14:00 04/05/18 17:04 Depacon Injection - IVPB 500 mg TID MICHEL Administration Home Medications Medication Instructions Recorded Bupropion HCl [Wellbutrin -] 150 mg PO DAILY 04/03/18 Methotrexate Sodium [Methotrexate] 2.5 mg PO WEEKLY 04/03/18 RX: Folic Acid 1 mg PO DAILY 04/03/18 RX: Methylprednisolone [Medrol -] 4 mg PO DAILY 04/03/18 RX: Norethindrone 0.7 mg PO DAILY 04/03/18 EKG: QTc 441 ASSESSMENT AND PLAN: Patient is a 32F w/ pmhx migraines, SLE, endometriosis who presents in the ED with 7 day hx of migraines admitted for uncontrolled migraine exacerbation #Acute exacerbation of migraine headache continues but improving . as per , added Depacon and increasded the dose of DHE to 0.75mg, will revaluate the patiernt n am #SLE; cont home meds #Morbid obesity : diet consult for weight loss and recommendations DVT px: SCDS
[2018-04-05] MEDS ORDERED: PT OWN MED DRAWER 7, Y5N ONE (21:31)
[2018-04-06] MEDS: VALPROATE SODIUM 500 MG/5 ML VIAL IVPB SCH ×2 (00:23→08:51)
[2018-04-06] MEDS: METOCLOPRAMIDE HCL INJECTION 10 MG/2 ML VIAL IVPUSH SCH ×2 (01:54→09:09)
[2018-04-06] MEDS: DIHYDROERGOTAMINE MESYLATE 1 MG/1 ML AMPULE IVPB SCH (02:28)
[2018-04-06] MEDS ORDERED: PT OWN MED DRAWER 7, Y5N ONE ×2 (08:45→09:06)
[2018-04-06] MEDS: buPROPion HCL 75 MG TABLET PO SCH (09:07)
[2018-04-06] MEDS: methylPREDNISolone 4 MG TABLET PO SCH (09:08)
[2018-04-06] MEDS: FOLIC ACID 1 MG TABLET (FP) PO SCH (09:08)
[2018-04-06 12:40] VITALS: BP 125/74; PULSE 75; TEMP 98.5
--- NOTE | 2018-04-06 14:26 | DS ---
Physical Exam: SUBJECTIVE: Patient seen and examined. No acute complaints overnight. OBJECTIVE: Vital Signs Period Temp Pulse Resp BP Sys/Elena Pulse Ox Last 24 Hr 98.0 F-98.5 F 68-84 18-20 113-125/67-78 98-98 PHYSICAL EXAM GENERAL: AAOx3. NAD. Resting comfortably in dark. HEENT: AT/NC. EOMI. +photophobia. NECK: Normal range of motion, supple without lymphadenopathy, JVD, or masses. LUNGS: CTA B/L. -w/r/r/ noted. HEART: RRR. -m/r/g noted. Normal S1, S2. ABDOMEN: Soft, NT/ND. normoactive BS in all 4 Q's. No abdominal masses, or bruits noted. MUSCULOSKELETAL: Normal range of motion at all joints. No bony deformities or tenderness. 5/5 muscle strength in U/L B/L extremities. UPPER EXTREMITIES: 2+ pulses, warm, well-perfused. No cyanosis. No clubbing. No peripheral edema. LOWER EXTREMITIES: 2+ pulses, warm, well-perfused. No calf tenderness. No peripheral edema. NEUROLOGICAL: Cranial nerves II-XII intact. Normal speech. PSYCHIATRIC: Cooperative. Good eye contact. Appropriate mood and affect. SKIN: Warm, dry, normal turgor, no rashes or lesions noted, normal capillary refill. LABS HOSPITAL COURSE: 32F w/ pmhx of migraines, SLE, and endometriosis was sent to the ED by Dr. Rich for persistent migraines for the past 7 days associated with photophobia , pain behind her R eye, and R sided pain radiating from the frontal region to the back of her neck. Upon admission, she was given Zofran for nausea and was placed on a DHE treatment per Dr. Rich's recommendation for 3 days. She was given Zofran, dihydroergotamine, and Benadryl. During her hospital stay, pt's symptoms improved with resolution of her migraine. She was discharged home with instructions to make a follow up appointment with Dr. Rich today. Date of Admission:04/03/18 Date of Discharge: 04/06/18 Minutes to complete discharge: 35 Discharge Summary Reason For Visit: MIGRAINE HEADACHE Condition: Good - Instructions Diet, Activity, Other Instructions: You were sent to the ED by your neurologist, Dr. Rich and admitted for intractable migraines. In the ED, you were given a migraine treatment for 3 days in the hospital by Dr. Rich. Your symptoms improved since admission and you were discharged home. MEDICAL RECOMMENDATIONS Please continue to take your home meds. CONSULT RECOMMENDATIONS Please follow up with your primary care physician, Dr. He in [address] Rich today for a follow up appointment. If you continue to experience persistent migraines, vision changes, worsening pain behind your eyes or nausea/vomiting, please go to your nearest emergency room immediately. Referrals: Aj Rich DO [Staff Physician] - 1 Week Arabella He MD [Primary Care Provider] - 1 Week Disposition: HOME - Home Medications Comprehensive Discharge Medication List: Ambulatory Orders Bupropion HCl [Wellbutrin -] 150 mg PO DAILY 04/03/18 Folic Acid 1 mg PO DAILY 04/03/18 Methotrexate Sodium [Methotrexate] 2.5 mg PO WEEKLY 04/03/18 Methylprednisolone [Medrol -] 4 mg PO DAILY 04/03/18 Norethindrone 0.7 mg PO DAILY 04/03/18 This patient is new to me today: No Emergency Visit: Yes ED Registration Date: 04/03/18 Care time: The patient presented to the Emergency Department on the above date and was hospitalized for further evaluation of their emergent condition. Critical Care patient: No - Discharge Referral Referred to [facility] No
--- NOTE | 2018-04-06 18:01 | PN ---
Teaching Attending Note Name of Resident: Razia Pascual ATTENDING PHYSICIAN STATEMENT I saw and evaluated the patient. I reviewed the resident's note and discussed the case with the resident. I agree with the resident's findings and plan as documented. SUBJECTIVE: Patient is comfortable no further headache. OBJECTIVE: Vital Signs Temperature 98.5 F 04/06/18 08:15 Pulse Rate 75 04/06/18 08:15 Respiratory Rate 20 04/06/18 08:15 Blood Pressure 125/74 04/06/18 08:15 O2 Sat by Pulse Oximetry (%) 98 04/06/18 09:00 CBCD WBC 9.2 K/mm3 (4.0-10.0) 04/04/18 08:00 RBC 4.53 M/mm3 (3.60-5.2) 04/04/18 08:00 Hgb 14.0 GM/dL (10.7-15.3) 04/04/18 08:00 Hct 40.2 % (32.4-45.2) 04/04/18 08:00 MCV 88.8 fl (80-96) 04/04/18 08:00 MCHC 34.8 g/dl (32.0-36.0) 04/04/18 08:00 RDW 14.5 % (11.6-15.6) 04/04/18 08:00 Plt Count 289 K/MM3 (134-434) 04/04/18 08:00 MPV 8.1 fl (7.5-11.1) 04/04/18 08:00 CMP Sodium 140 mmol/L (136-145) 04/04/18 08:00 Potassium 4.7 mmol/L (3.5-5.1) 04/04/18 08:00 Chloride 105 mmol/L (98-107) 04/04/18 08:00 Carbon Dioxide 27 mmol/L (21-32) 04/04/18 08:00 Anion Gap 8 (8-16) 04/04/18 08:00 BUN 10 mg/dL (7-18) 04/04/18 08:00 Creatinine 0.7 mg/dL (0.55-1.02) 04/04/18 08:00 Creat Clearance w eGFR > 60 (>60) 04/04/18 08:00 Random Glucose 83 mg/dL (74-106) 04/04/18 08:00 Calcium 9.0 mg/dL (8.5-10.1) 04/04/18 08:00 Total Bilirubin 0.2 mg/dL (0.2-1.0) 04/03/18 05:45 AST 22 U/L (15-37) 04/03/18 05:45 ALT 28 U/L (12-78) 04/03/18 05:45 Alkaline Phosphatase 53 U/L (45-117) 04/03/18 05:45 Total Protein 7.3 g/dl (6.4-8.2) 04/03/18 05:45 Albumin 3.7 g/dl (3.4-5.0) 04/03/18 05:45 Home Medications Medication Instructions Recorded Bupropion HCl [Wellbutrin -] 150 mg PO DAILY 04/03/18 Folic Acid 1 mg PO DAILY 04/03/18 Methotrexate Sodium [Methotrexate] 2.5 mg PO WEEKLY 04/03/18 Methylprednisolone [Medrol -] 4 mg PO DAILY 04/03/18 Norethindrone 0.7 mg PO DAILY 04/03/18 PE: per resident's note ASSESSMENT AND PLAN: Patient is a 32F w/ pmhx migraines, SLE, endometriosis who presents in the ED with 7 day hx of migraines admitted for uncontrolled migraine exacerbation #Acute exacerbation of migraine headache improved post treatment by ;s /p DHE to 0.75mg, Depakene. patient will follow with neuro office, wll call for an appointment. willdischarge the patient home.
== END 2018-04-06 13:13 | disposition home or self-care (01) | DRG 103 ==
LOC: JER 04:49 → INTOOBSV 09:10 → JERBED 09:10 → UNDOADMOB 09:10 → J5S 11:18 → JERBED 11:18 → J5S 11:29 → JERBED 11:29 → OBSVTOIN 19:16
PROVIDERS: ADMIT Internal Medicine; ATTEND Internal Medicine
DX: G43.911 Migraine, unspecified, intractable, with status migrainosus (principal); M32.9 Systemic lupus erythematosus, unspecified; E66.8 Other obesity; Z68.39 Body mass index [BMI] 39.0-39.9, adult; N80.9 Endometriosis, unspecified; H53.141 Visual discomfort, right eye
CPT/HCPCS: 36415; 80048; 80053; 83735; 84100; 84703; 85025; 85027; 85610; 85730; 93005; 93010; 99282-25; G0378; J8610